=== PATIENT | female | born 1990 ===

== ENCOUNTER 2018-12-13 10:00 | Emergency (ER) | payer OTHER ==
[2018-12-13 10:23] VITALS: RESP 20
[2018-12-13 12:04] LABS: BASO % 0.2 % (0.0-2.0); EOS # 0.1 K/uL (0.0-0.7); EOS % 1.2 % (0.0-4.0); HEMOGLOBIN 12.7 g/dL (11.0-16.0); LYMPH # 2.3 K/uL (1.0-4.3); LYMPH % 25.6 % (20.0-40.0); MEAN CELL VOLUME 81.6 fL (81.0-99.0); MEAN CORPUSCULAR HEMOGLOBIN 26.9 pg (27.0-31.0); MONO # 0.7 K/uL (0.0-0.8); MONO % 7.3 % (0.0-10.0); NEUT # 5.9 K/uL (1.8-7.0); NEUT % 65.7 % (50.0-75.0); NRBC % 0.1 % (0.0-2.0); RBC 4.71 Mil/uL (3.80-5.20); RED CELL DISTRIBUTION WIDTH 13.9 % (11.5-14.5); WHITE BLOOD COUNT 8.9 K/uL (4.8-10.8)
[2018-12-13 12:13] LABS: ALB/GLOB RATIO 1.5 (1.0-2.1); ALBUMIN 4.6 g/dL (3.5-5.0); ALT/SGPT 20 U/L (9-52); AST/SGOT 28 U/L (14-36); BLOOD UREA NITROGEN 14 mg/dL (7-17); CALCIUM 9.3 mg/dl (8.6-10.4); GFR NON-AFRICAN AMERICAN > 60
[2018-12-13 12:13] LABS: HCG,QUALITATIVE URINE NEGATIVE (NEGATIVE)
[2018-12-13 12:16] LABS: SQUAMOUS EPITHIAL 21 /hpf (0-5); URINE BACTERIA MANY (<OCC); URINE BILIRUBIN NEGATIVE (NEGATIVE); URINE BLOOD NEGATIVE (NEGATIVE); URINE CLARITY Hazy (Clear); URINE COLOR Yellow (YELLOW); URINE GLUCOSE (UA) NORMAL (Normal); URINE LEUKOCYTE ESTERASE 2+ Leu/uL (Negative); URINE PROTEIN NEGATIVE (NEGATIVE); URINE UROBILINOGEN NORMAL mg/dL (0.2-1.0)
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
[2018-12-13 12:31] LABS: BARBITURATES, UR NEGATIVE (NEGATIVE); BENZODIAZEPINES, UR NEGATIVE (NEGATIVE); OPIATES, UR NEGATIVE (NEGATIVE); PHENCYCLIDINE, UR NEGATIVE (NEGATIVE)
[2018-12-13 14:21] LABS: HEPATITIS B SURFACE AG Negative (NEGATIVE)
[2018-12-13 14:26] LABS: HEPATITIS A IGM NEGATIVE (NEGATIVE); HEPATITIS B CORE AB NEGATIVE (NEGATIVE)
[2018-12-13 14:38] LABS: HEPATITIS C ANTIBODY NEGATIVE (NEGATIVE)
[2018-12-13 15:07] VITALS: BP 110/70; PULSE 78; TEMP 98.9; O2SAT 98
== END 2018-12-13 15:10 | disposition home or self-care (01) ==
LOC: C.ER 10:00
DX: T74.21XA Adult sexual abuse, confirmed, initial encounter (principal); F32.9 Major depressive disorder, single episode, unspecified; F43.20 Adjustment disorder, unspecified

== ENCOUNTER 2019-02-20 09:51 | Outpatient (CLI) | payer OTHER | END 2019-02-20 09:52 | disposition home or self-care (01) | LOC: C.USIC 09:51 | DX: N64.4 Mastodynia (principal) ==